=== PATIENT | male | born 1960 | race Caucasian/White ===

== ENCOUNTER 2021-09-07 10:56 | Emergency (ER) | payer MEDICAID ==
[2021-09-07] MEDS ORDERED: Sodium Chloride 0.9% 10 ML Syringe FLUSH PRN (11:17)
[2021-09-07] MEDS ORDERED: Sodium Chloride 0.9% 1,000 ML IV ONE (11:34)
[2021-09-07] MEDS ORDERED: Albuterol 0.083% 2.5 MG/3 ML Neb Soln NEB ONE (11:41)
[2021-09-07] MEDS ORDERED: Ondansetron 4 MG/2 ML SDV IVPUSH ONE (11:41)
[2021-09-07] MEDS ORDERED: Iopamidol 612 MG/ML 100 ML Bottle IV PRN (14:19)
[2021-09-07] MEDS ORDERED: Sodium Chloride 0.9% 100 ML IV SCH (14:30)
[2021-09-11 16:09] LABS: BASOS 0 % (Not Estab.); EOS 13 % (Not Estab.); EOS (ABSOLUTE) 2.9 x10E3/uL (0.0-0.4); HEMATOCRIT 48.9 % (37.5-51.0); HEMOGLOBIN 16.1 g/dL (13.0-17.7); IMMATURE GRANULOCYTES 0 % (Not Estab.); LYMPHS 9 % (Not Estab.); MCH 32.5 pg (26.6-33.0); MCHC 32.9 g/dL (31.5-35.7); MCV 99 fL (79-97); MONOCYTES 4 % (Not Estab.); MONOCYTES(ABSOLUTE) 0.8 x10E3/uL (0.1-0.9); NEUTROPHILS 74 % (Not Estab.); NEUTROPHILS (ABSOLUTE) 16.7 x10E3/uL (1.4-7.0); PLATELETS 215 x10E3/uL (150-450); PLTS Appear normal. (.); RBC 4.96 x10E6/uL (4.14-5.80); RBC Appear normal. (.); RDW 13.9 % (11.6-15.4); WBC 22.6 x10E3/uL (3.4-10.8)
== END 2021-09-07 16:55 | disposition home or self-care (01) ==
LOC: JP.ED 10:56
DX: R53.1 Weakness (principal); R06.2 Wheezing; R11.2 Nausea with vomiting, unspecified; D72.828 Other elevated white blood cell count
CPT/HCPCS: 36415; 74177; 74177-26; 80053; 81001; 83605; 83690; 84484; 85025; 85060; 87086; 93005; 93010; 94640; 96361; 96374; 99282; 99284-25; J2405; J3490; J7030; Q9967